=== PATIENT | female | born 1970 | race Caucasian/White ===

== ENCOUNTER 2020-01-30 00:30 | Day surgery (SDC) | payer MEDICARE, MEDICAID, SELFPAY ==
[2020-01-18 15:24] VITALS: BMI 22.6
--- NOTE | 2020-01-30 08:34 | P.PNAN_ITS ---
Anes - Initial Pre Proc Eval Procedure: Operation Date: 01/30/20 11:00 Proposed Procedures p PAP Smear Under Anesthesia - Laurent Carey MD Date/Time: 01/30/20 08:34 Surgeon: Laurent Carey MD Pre Op Diagnosis: Well Woman Exam (preventative) Patient Data Age: 49 Gender: F Height: 1.73 m Weight: 67.59 kg Allergies Allergy/AdvReac Type Severity Reaction Status Date / Time amoxicillin Allergy Unknown Verified 01/18/20 15:18 polyethylene glycol Allergy Unknown Verified 01/18/20 15:18 Home Medications Medication Instructions Recorded Confirmed Type atorvastatin 10 mg PO DAILY 01/18/20 01/18/20 History benztropine 0.5 mg PO DAILY 01/18/20 01/18/20 History calcium carbonate [Calcium 600] 600 mg PO DAILY 01/18/20 01/18/20 History fexofenadine 180 mg PO HS 01/18/20 01/18/20 History lamotrigine 100 mg PO BID 01/18/20 01/18/20 History medroxyprogesterone 150 mg IM Q3M 01/18/20 01/18/20 History melatonin 3 mg PO HS 01/18/20 01/18/20 History metoprolol succinate 50 mg PO DAILY 01/18/20 01/18/20 History psyllium husk [Metamucil] 0.52 g PO DAILY 01/18/20 01/18/20 History vitamin E 400 unit PO BID 01/18/20 01/18/20 History Patient hx anesthesia problems: none Family hx anesthesia problems: none [facility] Past Medical History Medical History (Updated 01/30/20 @ 08:39 by Jeremy Friedman MD) Abnormal uterine bleeding Hypercholesterolemia Neurological disorder EXTRAPYRAMIDAL MOVEMENT DISORDER Psychiatric disorder MODERATE INTELLECTUAL DISABILITY, INSOMNIA Seizures GRAND MAL SEIZURES Anes - Eval Final PreProcedure Day of Procedure 01/30/20 08:34 Patient weight: normal Heart: regular rate and rhythm Lungs: clear to auscultation and normal air movement Airway: Mallampati scale class II Neurological: confused Last oral intake: >/= 8 hours ASA classification: III Emergent: no Anesthetic plan: proceed Anesthesia type and monitoring: general GIVS Informed Consent: The patient's anesthetic plan and its attendant risks and benefits were discussed with the patient/family/POA. Questions were solicited and answers provided to the satisfaction of the patient/family/POA.
[2020-01-30] MEDS: LACTATED RINGERS 1,000 ML 30 ML IV CONT (09:50)
[2020-01-30] MEDS: MIDAZOLAM HCL 2 MG/2 ML VIAL IV PUSH (09:55)
[2020-01-30] MEDS: IBUPROFEN IV 800 MG/200 ML 800 MG/200 ML BAG 400 MG IVPB (10:19)
--- NOTE | 2020-01-30 10:45 | PM.IMHP ---
H&P: HPI History of Present Illness Chief complaint: Well Woman Exam (preventative) Narrative: Julia Morales is a 49 year old female who is severely disabled. We were unable to perform her physical exam and pelvic exam in the office. We agreed with her guardians to perform a pelvic exam under anesthesia. We discussed the risk. She understands the risks, benefits, and alternatives. She has completed the informed consent process is ready to proceed. Review of Systems Constitutional: Constitutional: Reports no additional constitutional complaints, Denies fatigue, Denies headache(s), Denies lethargy and Denies weakness Eyes: Eyes: Reports no additional eye complaints, Denies blurry vision and Denies photophobia ENT: Reports as per HPI, Denies headache(s) and Denies neck pain Cardiovascular: Cardiovascular: Denies chest pain, Denies diaphoresis, Denies leg edema, Denies palpitations and Denies dyspnea Respiratory: Respiratory: Denies hemoptysis, Denies dyspnea and Denies wheezing Gastrointestinal: Gastrointestinal: Denies abdominal pain, Denies melena, Denies bloating, Denies hematochezia, Denies nausea and Denies vomiting Genitourinary: Genitourinary: Reports no additional female genitourinary complaints Musculoskeletal: Musculoskeletal: Denies joint swelling, Denies neck pain, Denies numbness and Denies stiffness Neurologic: Denies Abnormal speech present, Denies confusion, Denies headache(s), Denies numbness and Denies weakness Psychiatric: Psychiatric: Denies anxiety, Denies confusion, Denies depression, Denies homicidal ideation and Denies suicidal ideation Endocrine: Endocrine: Denies fatigue and Denies palpitations Allergic/Immunologic: Allergic/Immunologic: Denies wheezing [facility] Past Medical History Medical History (Updated 01/30/20 @ 08:39 by Jeremy Friedman MD) Abnormal uterine bleeding Hypercholesterolemia Neurological disorder EXTRAPYRAMIDAL MOVEMENT DISORDER Psychiatric disorder MODERATE INTELLECTUAL DISABILITY, INSOMNIA Seizures GRAND MAL SEIZURES Meds Home Medications and Allergies Home Medications Medication Instructions Recorded Confirmed Type atorvastatin 10 mg PO DAILY 01/18/20 01/30/20 History benztropine 0.5 mg PO DAILY 01/18/20 01/30/20 History calcium carbonate [Calcium 600] 600 mg PO DAILY 01/18/20 01/30/20 History fexofenadine 180 mg PO HS 01/18/20 01/30/20 History lamotrigine 100 mg PO BID 01/18/20 01/30/20 History medroxyprogesterone 150 mg IM Q3M 01/18/20 01/30/20 History melatonin 3 mg PO HS 01/18/20 01/30/20 History metoprolol succinate 50 mg PO DAILY 01/18/20 01/30/20 History psyllium husk [Metamucil] 0.52 g PO DAILY 01/18/20 01/30/20 History vitamin E 400 unit PO BID 01/18/20 01/30/20 History Allergies Allergy/AdvReac Type Severity Reaction Status Date / Time amoxicillin Allergy Unknown Verified 01/30/20 10:15 polyethylene glycol Allergy Unknown Verified 01/30/20 10:15 Exam Const: General: healthy appearing, comfortable and no acute distress; No confusion Orientation/consciousness: No confusion Eyes: Direct Ophthalmoscopy: No photophobia Resp: Auscultation: clear to auscultation bilaterally, no rales, no rhonchi and no wheezes Cardio: Rate: regular rate Heart sounds: no click, no murmurs and no rubs GI: Inspection: non-distended GI Palp: No abdominal tenderness Auscultation: normal bowel sounds Neuro: General: No confusion Speech: No Abnormal speech present Extrem: General: normal to inspection, no pedal edema and no calf tenderness Assessment and Plan Assessment and plan (1) Psychiatric disorder: Code(s): F99 - Mental disorder, not otherwise specified Status: Acute (2) Neurological disorder: Code(s): G98.8 - Other disorders of nervous system Status: Acute (3) Seizures: Code(s): R56.9 - Unspecified convulsions Status: Acute Assessment and Plan: This patient is a 49-year-old female who pres
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
[2020-01-30 11:15] VITALS: BP 113/81; PULSE 86; RESP 12; O2SAT 94
--- NOTE | 2020-01-30 11:37 | PM.PROC ---
Procedure Note - Detailed Date of procedure: 01/30/20 Pre-op diagnosis: Well Woman Exam (preventative) Post-op diagnosis: same Procedure performed: Pap smear pelvic exam under anesthesia Description of procedure: Patient is taken to the operating room. She was prepped and draped in the dorsal lithotomy position after induction of mac anesthesia. A speculum was placed in the vagina. A Pap smear was performed. The vulva and vagina and cervix were examined. The bimanual exam was not performed. The procedure was terminated. Anesthesia: MAC Surgeon: Laurent Carey MD Estimated blood loss (mL): 0 Drains: No Packing: No Pathology: yes Complications: No immediate complications Condition: stable Disposition: same day Findings: Normal vulva, vagina, cervix, and bimanual exam.
[2020-01-30 11:45] VITALS: BP 136/92; PULSE 90; RESP 18; O2SAT 99
[2020-01-30 12:15] VITALS: BP 170/99; PULSE 90; RESP 18
== END 2020-01-30 12:33 | disposition home or self-care (01) ==
PROVIDERS: PCP Family Medicine; Visit Provider Obstetrics & Gynecology
PROC: (CPT 57410; principal; 2020-01-30 11:00)
DX: Z01.419 Encounter for gynecological examination (general) (routine) without abnormal findings (principal); F71 Moderate intellectual disabilities; G40.909 Epilepsy, unspecified, not intractable, without status epilepticus; G25.9 Extrapyramidal and movement disorder, unspecified; E78.00 Pure hypercholesterolemia, unspecified; N93.9 Abnormal uterine and vaginal bleeding, unspecified; G47.00 Insomnia, unspecified
CPT/HCPCS: 57410; A9270; J1741; J2250; J2704; J3010; J7120

== ENCOUNTER 2020-02-11 14:41 | Emergency (ER) | payer MEDICARE, MEDICAID, SELFPAY ==
--- NOTE | ~2020-02-11 | XR_ITS ---
EXAMINATION: XR finger 3rd LT min 2V INDICATION: Left third finger pain TECHNIQUE: Four views of the left third finger are obtained. COMPARISON: None available FINDINGS: There is soft tissue swelling of the third finger. No definite fracture is identified. 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 IMPRESSION: 1. Soft tissue swelling of the third finger without definite fracture. Reviewed, dictated and finalized at location A.
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
[2020-02-11 14:50] VITALS: BP 187/113; PULSE 109; RESP 16; TEMP 38; O2SAT 100
== END 2020-02-11 15:30 | disposition home or self-care (01) ==
PROVIDERS: Emergency Provider Nurse Practitioner Family
DX: S61.253A Open bite of left middle finger without damage to nail, initial encounter (principal); Y04.1XXA Assault by human bite, initial encounter; E78.00 Pure hypercholesterolemia, unspecified; G25.9 Extrapyramidal and movement disorder, unspecified; F71 Moderate intellectual disabilities
CPT/HCPCS: 73140; 99213; G0463

== ENCOUNTER 2024-09-17 10:22 | Emergency (ER) | payer MEDICARE, MEDICAID, SELFPAY ==
--- NOTE | ~2024-09-17 | XR_ITS ---
XR ankle RT min 3V Ordering provider: Juliet Singh APRN History: . pt fell and twisted her ankle . Comparison: None. FINDINGS: BONES: No acute fracture or dislocation. JOINT SPACES: Normal. SOFT TISSUES: Soft tissue swelling over the medial and lateral malleoli. IMPRESSION: No acute osseous abnormality of the right ankle. Reviewed, dictated and finalized at location A.
--- NOTE | 2024-09-17 10:31 | ED.LOWEXIN ---
HPI - Extremity Injury (Lower) General Chief Complaint: Extremity Injury, Lower Stated Complaint: Right Ankle Injury Time Seen by Provider: 09/17/24 10:25 Source: patient Mode of arrival: ambulatory Limitations: no limitations History of Present Illness HPI Narrative: Patient is a 54-year-old female. Developmentally delayed. Staff from [facility] with patient. Patient fell twisted ankle yesterday. Patient having she pain and swelling over right ankle. Patient is still able to move it normally for her. Related Data Home Medications Medication Instructions Recorded Confirmed atorvastatin 10 mg tablet 10 mg PO DAILY 01/18/20 02/11/20 benztropine 0.5 mg tablet 0.5 mg PO DAILY 01/18/20 02/11/20 calcium carbonate (Calcium 600) 600 mg PO DAILY 01/18/20 02/11/20 fexofenadine 180 mg tablet 180 mg PO HS 01/18/20 02/11/20 lamotrigine 100 mg tablet 100 mg PO BID 01/18/20 02/11/20 medroxyprogesterone 150 mg/mL 150 mg IM Q3M 01/18/20 02/11/20 intramuscular syringe melatonin 3 mg tablet 3 mg PO HS 01/18/20 02/11/20 metoprolol succinate 50 mg 50 mg PO DAILY 01/18/20 02/11/20 tablet,extended release 24 hr psyllium husk 0.52 gram capsule 0.52 g PO DAILY 01/18/20 02/11/20 (Metamucil) vitamin E 268 mg (400 unit) capsule 400 unit PO BID 01/18/20 02/11/20 acetaminophen 325 mg tablet 650 mg PO Q4-6H PRN Pain 02/11/20 02/11/20 lorazepam 1 mg tablet 1 mg PO BID PRN Anxiety 02/11/20 02/11/20 Allergies Allergy/AdvReac Type Severity Reaction Status Date / Time amoxicillin Allergy Unknown Unknown Verified 02/11/20 15:16 polyethylene glycol Allergy Unknown Unknown Verified 02/11/20 15:16 Review of Systems Review of Systems: All systems reviewed & are unremarkable except as noted in HPI and below Constitutional: Constitutional: Denies body ache(s), Denies chills, Denies fatigue, Denies fever(s), Denies headache(s), Denies malaise and Denies weakness Eyes: Eyes: Denies blurry vision, Denies irritation and Denies loss of vision ENT: Denies otalgia, Denies headache(s), Denies nasal discharge, Denies sinus pain and Denies sore throat Cardiovascular: Cardiovascular: Denies chest pain, Denies irregular heart rhythm and Denies dyspnea Respiratory: Respiratory: Denies dyspnea Gastrointestinal: Gastrointestinal: Denies abdominal pain, Denies melena, Denies hematochezia, Denies diarrhea, Denies nausea and Denies vomiting Musculoskeletal: Musculoskeletal: Denies back pain, Denies myalgias, Reports arthralgias and Reports joint swelling Integumentary/Breasts: Skin/Breast: Denies pruritus and Denies rash Neurologic: Denies headache(s), Denies loss of vision and Denies weakness Psychiatric: Psychiatric: Reports no additional psychiatric complaints Endocrine: Endocrine: Denies fatigue PMFSH Past Medical History Medical History Abnormal uterine bleeding Hypercholesterolemia Neurological disorder EXTRAPYRAMIDAL MOVEMENT DISORDER Psychiatric disorder MODERATE INTELLECTUAL DISABILITY, INSOMNIA Seizures GRAND MAL SEIZURES Comments At time of signature, agree with nursing past medical, surgical, social and family history. There is no relevant family history pertinent to the presenting complaint. Exam Const: General: cooperative, healthy appearing, comfortable, no acute distress and well nourished Nutritional Appearance: well nourished Orientation/consciousness: patient oriented x3 Limitations: no limitations HENMT: Head: normal to inspection, normocephalic and atraumatic Ears: hearing grossly normal bilaterally and external ears normal Face/Nose/Sinus: Normal external nose present, normal facial exam and face symmetric Face and sinus: normal facial exam and face symmetric Mouth: Yes lip normal Eyes: General: appearance normal, both eyes and all related structures Alignment and Position: alignment normal and position normal Periorbital: periorbital findings normal Eyelids: eyeli
[2024-09-17 10:38] VITALS: BP 130/83; PULSE 87; RESP 20; TEMP 36.6; O2SAT 99
== END 2024-09-17 11:38 | disposition home or self-care (01) ==
PROVIDERS: Emergency Provider Nurse Practitioner Family; PCP Physician Assistant
DX: S93.401A Sprain of unspecified ligament of right ankle, initial encounter (principal); S96.911A Strain of unspecified muscle and tendon at ankle and foot level, right foot, initial encounter; W19.XXXA Unspecified fall, initial encounter; E78.00 Pure hypercholesterolemia, unspecified; G25.9 Extrapyramidal and movement disorder, unspecified; F71 Moderate intellectual disabilities; G40.409 Other generalized epilepsy and epileptic syndromes, not intractable, without status epilepticus
CPT/HCPCS: 73610; 99213; G0463